=== PATIENT | female | born 1955 | race Two or more races ===

== ENCOUNTER 2017-03-17 12:47 | Emergency (ER) | payer MEDICARE, OTHER ==
[~2017-03-17] VITALS: Ht 149.9 cm; Wt 52.4 kg
[~2017-03-17 12:47] MED LIST: ATOR40TA49 PO; GABA600T PO; GLUCTAB OR; GLYB1TAB51 PO; LANTUS2P SC; LISI-360 PO; LISI5; NEUR800T PO; PRAV10 OR; TOPR25TA2 PO; syringes IM
[2017-03-17 12:52] VITALS: BP 122/69; PULSE 95; RESP 16; TEMP 98.3; O2SAT 95
[2017-03-17] MEDS ORDERED: SODIUM CHLOR 0.9% 1000 ML INJ 1,000 ML IV ONE (13:03)
--- NOTE | 2017-03-17 13:09 | PD ---
HPI Chief Complaint: Dizziness Time Seen by Provider: 12:57 Travel History International Travel<30 days: No Contact w/Intl Traveler<30days: No Traveled to known affect area: No History of Present Illness HPI The patient is a 62-year-old female who presents emergency department for rash and dizziness. The patient states she developed a rash 3 days ago after walking in the yard. The rash is located inferiorly to the knees, states she has some red somewhat pruritic areas from the knees inferiorly. It starts just below her knees and stops just above her sock line. She states it is pruritic, started after walking in the yard through some grass. She denies any rash above the knees or rash affecting the face, chest, abdomen, back, or upper extremities. She also complains of 2 days of lightheadedness, dizziness, and occasional dimming of her vision. The patient states she recently had her eyeglass prescription changed 3 months ago, last one was changed approximately one year prior. She denies any headache or focal deficits, is able to and bleed without difficulty. She denies any chest pain, shortness of breath, vomiting, or diarrhea. However, she does complain of mild nausea. She does have a history of diabetes, Accu-Chek in the emergency department was 183. PFSH Past Medical History Cancer: Yes (CERVIX) Diabetes: Yes Diminished Hearing: No Musculoskeletal: Yes (FX COCCYX 6 MONTHS AGO) Immunizations Current: No ?: Not Menopausal: Yes Tubal Ligation: Yes Past Surgical History Hysterectomy: Yes (1997) Other Surgery: Yes (--DORON OWEN) Social History Alcohol Use: No Tobacco Use: No Substance Use: No Allergies-Medications (Allergen,Severity, Reaction): Coded Allergies: Penicillin (Verified Allergy, Severe, Rash, 03/17/17) Reported Meds & Prescriptions Reported Meds & Active Scripts Active Reported Losartan (Losartan Potassium) 25 Mg Tab 12.5 Mg PO DAILY Metoprolol Tartrate 25 Mg Tab 25 Mg PO BID Lantus Inj (Insulin Glargine) 1,000 Unit/10 Ml Vial 45 Units SQ BID Humalog Inj (Insulin Human Lispro) 1,000 Unit/10 Ml Vial 30 Units SQ TID Max dose at bedtime:( )units; sugars< 70,(0)units; sugars 150-199,(1)unit; sugars 200-249,(3)units; sugars 250-299,(5)units; sugars 300-349,(7)units; sugars more than 349,(9)units. Metformin (Metformin HCl) 1,000 Mg Tab 1,000 Mg PO BIDPC With meals Review of Systems Except as stated in HPI: all other systems reviewed are Neg General / Constitutional: No: Fever Eyes: Positive: Other HENT: Positive: Lightheadedness, No: Headaches Cardiovascular: No: Chest Pain or Discomfort, Palpitations, Irregular Rhythm, Tachycardia, Diaphoresis, Syncope Respiratory: No: Shortness of Breath Gastrointestinal: Positive: Nausea, No: Vomiting, Abdominal Pain Genitourinary: No: Dysuria Musculoskeletal: No: Weakness, Edema Skin: Positive Rash, Positive Itching Neurologic: Positive: Dizziness Physical Exam Narrative GENERAL: Awake, alert, pleasant 62-year-old female who appears her stated age and is in no acute respiratory distress. SKIN: Focused skin assessment warm/dry. The patient has a vesicular rash on the lower extremities but affects the anterior and lateral aspect of the lower tibia/fibular from the knee inferiorly, stops just above the sock line. Well delineated stoppage area on the inferior aspect. HEAD: Atraumatic. Normocephalic. EYES: Pupils equal and round. No scleral icterus. No injection or drainage. ENT: No nasal bleeding or discharge. Mucous membranes pink and moist. NECK: Trachea midline. No JVD. CARDIOVASCULAR: Regular rate and rhythm. No murmur appreciated. RESPIRATORY: No accessory muscle use. Clear to auscultation. Breath sounds equal bilaterally. GASTROINTESTINAL: Abdomen soft, non-tender, nondistended. No rebound tenderness. MUSCULOSKELETAL: No obvious deformities. No clubbing. No cyanosis. No edema. NEUROLOGICAL: Awake and alert. No obvious cranial nerve deficits. Motor grossly within normal limits. Normal speech. Nonfocal. Oriented 4. PSYCHIATRIC: Appropriate mood and affect; insight and judgment normal. Data Data Last Documented VS Vital Signs Date Time Temp Pulse Resp B/P Pulse Ox O2 Delivery O2 Flow Rate FiO2 03/17/17 14:18 90 16 112/64 97 Room Air 03/17/17 12:52 98.3 Orders Electrocardiogram (03/17/17 13:03) Complete Blood Count With Diff (03/17/17 13:03) Comprehensive Metabolic Panel (03/17/17 13:03) Magnesium (Mg) (03/17/17 13:03) Ckmb (Isoenzyme) Profile (03/17/17 13:03) Troponin I (03/17/17 13:03) Urinalysis - C+S If Indicated (03/17/17 13:03) Ecg Monitoring (03/17/17 13:03) Iv Access Insert/Monitor (03/17/17 13:03) Oximetry (03/17/17 13:03) Sodium Chloride 0.9% Flush (Ns Flush) (03/17/17 13:15) Sodium Chlor 0.9% 1000 Ml Inj (Ns 1000 M (03/17/17 13:03) Orthostatic Vital Signs (03/17/17 13:03) CKMB (03/17/17 13:30) CKMB% (03/17/17 13:30) Sodium Chlorid 0.9% 500 Ml Inj (Ns 500 M (03/17/17 14:15) Labs Laboratory Tests Test 03/17/17 03/17/17 13:30 14:00 White Blood Count 7.4 TH/MM3 Red Blood Count 4.09 MIL/MM3 Hemoglobin 12.4 GM/DL Hematocrit 36.5 % Mean Corpuscular Volume 89.4 FL Mean Corpuscular Hemoglobin 30.3 PG Mean Corpuscular Hemoglobin 33.8 % Concent Red Cell Distribution Width 13.0 % Platelet Count 173 TH/MM3 Mean Platelet Volume 9.5 FL Neutrophils (%) (Auto) 68.3 % Lymphocytes (%) (Auto) 22.1 % Monocytes (%) (Auto) 5.5 % Eosinophils (%) (Auto) 3.6 % Basophils (%) (Auto) 0.5 % Neutrophils # (Auto) 5.1 TH/MM3 Lymphocytes # (Auto) 1.6 TH/MM3 Monocytes # (Auto) 0.4 TH/MM3 Eosinophils # (Auto) 0.3 TH/MM3 Basophils # (Auto) 0.0 TH/MM3 CBC Comment DIFF FINAL Differential Comment Sodium Level 145 MEQ/L Potassium Level 4.4 MEQ/L Chloride Level 108 MEQ/L Carbon Dioxide Level 27.7 MEQ/L Anion Gap 9 MEQ/L Blood Urea Nitrogen 27 MG/DL Creatinine 1.70 MG/DL Estimat Glomerular Filtration 31 ML/MIN Rate Random Glucose 172 MG/DL Calcium Level 9.5 MG/DL Magnesium Level 1.4 MG/DL Total Bilirubin 0.4 MG/DL Aspartate Amino Transf 23 U/L (AST/SGOT) Alanine Aminotransferase 25 U/L (ALT/SGPT) Alkaline Phosphatase 108 U/L Total Creatine Kinase 242 U/L Creatine Kinase MB 0.7 NG/ML Creatine Kinase MB % 0.3 % Troponin I LESS THAN 0.02 NG/ML Total Protein 8.0 GM/DL Albumin 3.8 GM/DL Urine Collection Type CLEAN CATCH Urine Color YELLOW Urine Turbidity SLIGHT Urine pH 5.5 Urine Specific [place] 1.016 Urine Protein NEG mg/dL Urine Glucose (UA) NEG mg/dL Urine Ketones TRACE mg/dL Urine Occult Blood NEG Urine Nitrite NEG Urine Bilirubin NEG Urine Leukocyte Esterase TRACE Urine WBC 3-5 /hpf Urine Squamous Epithelial 6-8 /hpf Cells Urine Transitional Epithelial 6-8 /hpf Cells Urine Amorphous Sediment MOD Microscopic Urinalysis Comment CULT NOT INDICATED Urine Collection Time 1400 MDM Medical Decision Making Medical Screen Exam Complete: Yes Emergency Medical Condition: Yes Medical Record Reviewed: Yes Interpretation(s) EKG reveals normal sinus rhythm with a rate in 95. No ischemic changes or ectopy noted. Laboratory Tests Test 03/17/17 03/17/17 13:30 14:00 White Blood Count 7.4 TH/MM3 Red Blood Count 4.09 MIL/MM3 Hemoglobin 12.4 GM/DL Hematocrit 36.5 % Mean Corpuscular Volume 89.4 FL Mean Corpuscular Hemoglobin 30.3 PG Mean Corpuscular Hemoglobin 33.8 % Concent Red Cell Distribution Width 13.0 % Platelet Count 173 TH/MM3 Mean Platelet Volume 9.5 FL Neutrophils (%) (Auto) 68.3 % Lymphocytes (%) (Auto) 22.1 % Monocytes (%) (Auto) 5.5 % Eosinophils (%) (Auto) 3.6 % Basophils (%) (Auto) 0.5 % Neutrophils # (Auto) 5.1 TH/MM3 Lymphocytes # (Auto) 1.6 TH/MM3 Monocytes # (Auto) 0.4 TH/MM3 Eosinophils # (Auto) 0.3 TH/MM3 Basophils # (Auto) 0.0 TH/MM3 CBC Comment DIFF FINAL Differential Comment Sodium Level 145 MEQ/L Potassium Level 4.4 MEQ/L Chloride Level 108 MEQ/L Carbon Dioxide Level 27.7 MEQ/L Anion Gap 9 MEQ/L Blood Urea Nitrogen 27 MG/DL Creatinine 1.70 MG/DL Estimat Glomerular Filtration 31 ML/MIN Rate Random Glucose 172 MG/DL Calcium Level 9.5 MG/DL Magnesium Level 1.4 MG/DL Total Bilirubin 0.4 MG/DL Aspartate Amino Transf 23 U/L (AST/SGOT) Alanine Aminotransferase 25 U/L (ALT/SGPT) Alkaline Phosphatase 108 U/L Total Creatine Kinase 242 U/L Creatine Kinase MB 0.7 NG/ML Creatine Kinase MB % 0.3 % Troponin I LESS THAN 0.02 NG/ML Total Protein 8.0 GM/DL Albumin 3.8 GM/DL Urine Collection Type CLEAN CATCH Urine Color YELLOW Urine Turbidity SLIGHT Urine pH 5.5 Urine Specific [place] 1.016 Urine Protein NEG mg/dL Urine Glucose (UA) NEG mg/dL Urine Ketones TRACE mg/dL Urine Occult Blood NEG Urine Nitrite NEG Urine Bilirubin NEG Urine Leukocyte Esterase TRACE Urine WBC 3-5 /hpf Urine Squamous Epithelial 6-8 /hpf Cells Urine Transitional Epithelial 6-8 /hpf Cells Urine Amorphous Sediment MOD Microscopic Urinalysis Comment CULT NOT INDICATED Urine Collection Time 1400 Differential Diagnosis Differential diagnosis includes allergic dermatitis, contact dermatitis, hyperglycemia, dehydration, visual acuity changes, presyncope, CVA, TIA, arrhythmia, electrolyte abnormality. Narrative Course IV was established, labs are drawn and sent, and the patient was placed on cardiac telemetry monitoring and continuous pulse oximetry monitoring. EKG was ordered and interpreted. Orthostatic vital signs were obtained and the patient was administered 1 L of IV fluids. Bedside Accu-Chek was 183. Orthostatic vital signs are unremarkable. The patient's glucose is mildly elevated at 264, creatinine is elevated at 1.71, consistent with acute kidney injury, may be secondary to dehydration. Therefore, patient was administered another 500 cc of fluids. EKG was unremarkable. UA is negative. Patient will be discharged home on prednisone and Benadryl for her dermatitis, is advised to drink plenty fluids to stay hydrated and follow-up with a primary physician. Return if symptoms worsen or progress. Diagnosis Primary Impression: Dermatitis Additional Impression: Dehydration Patient Instructions: General Instructions Additional Instructions: Medications as directed. Medrol Dosepak and Benadryl for dermatitis. Monitor blood sugars of steroids may elevate her blood sugars. Plenty of fluids to stay hydrated. Follow-up with a primary physician. Return if symptoms worsen or progress. Med/Other Pt SpecificInfo: Prescription(s) given Scripts Diphenhydramine 25 Mg Cap25 Mg PO Q6H PRN (ALLERGIES) #20 CAP Ref 0 Prov:Miki Morataya MD 03/17/17 Methylprednisolone Dosepak (Medrol Dosepak)4 Mg Dspk4 Mg PO DIRECTED #1 DSPK Ref 0 Per Pharmacist direction Prov:Miki Morataya MD 03/17/17 Disposition: 01 DISCHARGE HOME Condition: Stable Miki Morataya MD Mar 17, 2017 13:09
[2017-03-17] MEDS ORDERED: ATOR10TA15 PO (13:10)
[2017-03-17] MEDS ORDERED: LOSA25TA PO (13:10)
[2017-03-17] MEDS ORDERED: METO25TA3 PO (13:10)
[2017-03-17] MEDS ORDERED: HUMALOG SQ (13:10)
[2017-03-17] MEDS ORDERED: METF1000 PO (13:10)
[2017-03-17] MEDS ORDERED: LANTUS2P SQ (13:10)
[2017-03-17 13:30] VITALS: BP 110/68; PULSE 92; RESP 16; O2SAT 98
[2017-03-17 13:32] VITALS: RESP 16; O2SAT 97
[2017-03-17] MEDS: SODIUM CHLORIDE 0.9% FLUSH 10 ML FLUSH IVF PRN ×2 (13:32→14:24)
[2017-03-17 13:41] VITALS: BP_SYST 110; BP_SYST 114; BP_SYST 116; BP_DIAS 64; BP_DIAS 68; BP_DIAS 69; RESP 18
[2017-03-17 13:45] LABS: AUTOMATED NEUTROPHIL # 5.1 TH/MM3 (1.8-7.7); BASOPHIL % 0.5 % (0.0-2.0); EOSINOPHIL # 0.3 TH/MM3 (0-0.4); EOSINOPHIL % 3.6 % (0.0-4.0); HEMATOCRIT 36.5 % (35.0-46.0); HEMO FLAGS DIFF FINAL; LYMPH % 22.1 % (9.0-44.0); LYMPHOCYTE # 1.6 TH/MM3 (1.0-4.8); MEAN CELL VOLUME 89.4 FL (80.0-100.0); MEAN CORPUSCULAR HEMOGLOBIN 30.3 PG (27.0-34.0); MEAN CORPUSCULAR HGB CONC 33.8 % (32.0-36.0); MONO % 5.5 % (0.0-8.0); NEUT % 68.3 % (16.0-70.0); PLATELET COUNT 173 TH/MM3 (150-450); RED BLOOD COUNT 4.09 MIL/MM3 (4.00-5.30); WHITE BLOOD COUNT 7.4 TH/MM3 (4.0-11.0)
[2017-03-17 13:48] LABS: CHLORIDE 108 MEQ/L (98-107); POTASSIUM 4.4 MEQ/L (3.5-5.1); SODIUM (NA) 145 MEQ/L (136-145)
[2017-03-17 13:52] LABS: ANION GAP 9 MEQ/L (5-15); BICARBONATE 27.7 MEQ/L (21.0-32.0); BLOOD UREA NITROGEN 27 MG/DL (7-18); MAGNESIUM 1.4 MG/DL (1.5-2.5)
[2017-03-17 13:55] LABS: ALT (GPT) 25 U/L (10-53); AST (GOT) 23 U/L (15-37); GLOMERULAR FILTRATION RATE 31 ML/MIN (>89)
[2017-03-17 13:57] LABS: TOTAL BILIRUBIN ADULT 0.4 MG/DL (0.2-1.0)
[2017-03-17 13:58] LABS: ALKALINE PHOSPHATASE 108 U/L (45-117); CREATINE KINASE 242 U/L (26-192)
[2017-03-17 14:10] LABS: CKMB 0.7 NG/ML (0.5-3.6)
[2017-03-17] MEDS ORDERED: SODIUM CHLORID 0.9% 500 ML INJ 500 ML IV ONE (14:15)
[2017-03-17 14:18] VITALS: BP 112/64; PULSE 90; RESP 16; O2SAT 97
[2017-03-17 14:21] LABS: BLOOD, URINE NEG (NEG); GLUCOSE,URINE NEG (NEG); KETONE, URINE TRACE mg/dL (NEG); NITRITE,URINE NEG (NEG); PH, URINE 5.5 (5.0-8.5)
[2017-03-17 14:25] LABS: METHOD OF COLLECTION CLEAN CATCH
[2017-03-17 14:26] LABS: URINE COLOR YELLOW (YELLW/STRAW)
[2017-03-17 14:29] LABS: COMMENT (UR) CULT NOT INDICATED; COMMENT2 (UR) MUCOUS PRESENT; CULTURE IF INDICATED CULT NOT INDICATED
[2017-03-17] MEDS ORDERED: DIPH25CA PO (14:49)
[2017-03-17] MEDS ORDERED: MEDR4PAK PO (14:49)
[2017-03-17 15:29] VITALS: BP_SYST 11; BP_SYST 114; BP_DIAS 57; BP_DIAS 78
--- NOTE | 2017-03-18 13:45 | EKG ---
Date Performed: 03/17/2017 Time Performed: 13:10:50 PTAGE: 62 years EKG: Sinus rhythm NORMAL ECG NO PREVIOUS TRACING DOCTOR: Veena Anne Interpretating Date/Time 03/18/2017 13:42:57
== END 2017-03-17 15:51 | disposition home or self-care (01) ==
LOC: PHED 12:47
DX: L30.9 Dermatitis, unspecified (principal); E86.0 Dehydration; R42 Dizziness and giddiness; E11.9 Type 2 diabetes mellitus without complications; R11.0 Nausea
CPT/HCPCS: 80053; 81001; 82550; 82552; 83735; 84484; 85025; 93005; 96360; 96361; 99284; J7030; J7040